=== PATIENT | male | born 1985 | race Caucasian/White ===

== ENCOUNTER 2018-06-16 12:57 | Emergency (ER) | payer SELFPAY ==
[2018-06-16] MEDS ORDERED: HALOPERIDOL 1 MG TAB ONE (13:12)
[2018-06-16] MEDS ORDERED: HALOPERIDOL 1 MG TAB PO SCH (13:15)
[2018-06-16 13:38] VITALS: BP 156/100; PULSE 103; RESP 16; TEMP 96.9; O2SAT 98
[2018-06-16 13:38] LABS: BASOPHILS % (AUTO) 1 % (0-3); EOSINOPHILS % (AUTO) 0 % (0-9); HEMATOCRIT 48 % (39-53); HEMOGLOBIN 15.1 gm/dl (13.5-17.7); LYMPHOCYTES % (AUTO) 22.1 % (10-50); MEAN CORPUSCULAR HEMOGLOBIN 29.1 pg (27.0-32.0); MEAN CORPUSCULAR HGB CONC 31.4 gm/dl (32.0-36.0); MEAN CORPUSCULAR VOLUME 93 fL (80-100); MONOCYTES % (AUTO) 7.4 % (0-12); NEUTROPHILS % (AUTO) 68.9 % (37-80)
[2018-06-16 13:43] LABS: ALBUMIN 4.4 gm/dl (3.4-5.0); ALKALINE PHOSPHATASE 83 IU/L (46-116); ALT 56 IU/L (14-63); AST 18 IU/L (15-37); BILIRUBIN,TOTAL 1.5 mg/dl (0.2-1.0); BLOOD UREA NITROGEN 18 mg/dl (7-18); CALCIUM 9.8 mg/dl (8.5-10.1); CARBON DIOXIDE 27.5 mEq/L (21-32); CHLORIDE 103 mMol/L (98-107); CREATININE 1.18 mg/dl (0.80-1.30); GLUCOSE 111 mg/dl (74-106); POTASSIUM 3.7 mMol/L (3.5-5.1); SODIUM 143 mMol/L (136-145); THYROID STIMULATING HORMONE 1.467 uIU/ml (0.358-3.740); TOTAL PROTEIN 8.3 gm/dl (6.4-8.2)
[2018-06-16 13:46] LABS: ALCOHOL < 0.003 gm/dl (0.000-0.08)
[2018-06-16 13:47] LABS: APPEARANCE,URINE Clear; BILIRUBIN,URINE 1+ (NEGATIVE); COLOR,URINE Amber; GLUCOSE, URINE (UA) NEGATIVE (NEGATIVE); KETONES,URINE 2+ (NEGATIVE); LEUKOCYTE ESTERASE ,URINE NEGATIVE (NEGATIVE); NITRATE,URINE NEGATIVE (NEGATIVE); OCCULT BLOOD,URINE 1+ (NEG-TRACE); PH,URINE 5.5
[2018-06-16 14:03] LABS: AMPHETAMINES POSITIVE (NEGATIVE); BACTERIA 1+ (< 1+); BARBITUATES NEGATIVE (NEGATIVE); BENZODIAZEPINES NEGATIVE (NEGATIVE); CANNABINOL(THC) NEGATIVE (NEGATIVE); COCAINE(COC) NEGATIVE (NEGATIVE); CRYSTALS NEGATIVE (0-3 AVE/HPF); EPITHELIAL CELLS NEGATIVE (SQUAMOUS); ICTOTEST,URINE NEGATIVE (NEGATIVE); METHADONE POSITIVE (NEGATIVE); OPIATES(OPI) NEGATIVE (NEGATIVE); PROPOXYPHENE(PPX) NEGATIVE (NEGATIVE); RBC,URINE 0-1 (0-3AV/HPF); TRICYCLIC ANTIDEPRESSANTS NEGATIVE (NEGATIVE); WBC,URINE 0-1 (0-5AV/HPF)
[2018-06-16 14:04] LABS: METHAMPHETAMINES POSITIVE (NEGATIVE); OXYCODONE(OXY) NEGATIVE (NEGATIVE)
[2018-06-16] MEDS ORDERED: HALOPERIDOL LACTATE 5 MG/ML SOL IM ONE (14:24)
[2018-06-16] MEDS ORDERED: LORAZEPAM 2 MG/ML SOL IM ONE (14:25)
[2018-06-16] MEDS ORDERED: HALOPERIDOL LACTATE 5 MG/ML SOL ONE (14:38)
== END 2018-06-16 16:50 | disposition short-term general hospital (02) | DRG 885 ==
LOC: ED 12:57
DX: F29 Unspecified psychosis not due to a substance or known physiological condition (principal)
CPT/HCPCS: 36415; 80053; 80305; 80307; 81001; 84443; 85025; 96372; 99283; 99285; J1630; J2060; A9270-GY